=== PATIENT | male | born 1930 ===

== ENCOUNTER → 2018-10-01 | Outpatient (CLI) | payer MEDICARE ==
[2018-10-01 08:49] LABS: Urine WBC None Seen /hpf (0 - 3)
[2018-10-01 08:57] LABS: Basophils # (auto) 0.1 uL; Basophils % (auto) 1.8 % (0.0-2.0); Eosinophils # (auto) 0.2 uL; Eosinophils % (auto) 4.8 % (0.0-7.0); Hematocrit 48.3 % (41.0-53.0); Hemoglobin 16.3 g/dL (13.5-17.5); Lymphocytes # (auto) 1.4 uL; Mean Corpuscular Hgb Conc. 33.7 g/dL (32.0-36.0); Mean Corpuscular Volume 100.8 fL (80.0-100.0); Monocytes # (auto) 0.4 uL; Monocytes % (auto) 8.3 % (0.0-12.0); Neutrophils % (auto) 57.1 % (37.0-80.0); Nucleated Red Blood Cells % 0.1 %; Platelet Count (auto) 220 10^3/uL (140-450); Red Blood Cells 4.79 10^6/uL (4.5-5.90); Red Cell Distribution Width 13.5 % (11.8-14.3); White Blood Cell 5.2 10^3/uL (4.4-10.8)
[2018-10-01 09:10] LABS: Urine Bacteria NONE SEEN /hpf (None Seen); Urine Blood Negative /uL (Negative); Urine Specific Gravity 1.015 (1.001-1.035)
[2018-10-01 09:16] LABS: Potassium 4.2 mmol/L (3.5-5.1)
[2018-10-01 09:23] LABS: INR 1.06 (0.9-1.15); Partial Thromboplastin Time 29.7 sec (23.78-33.04); Prothrombin Time 11.3 sec (9.27-12.13)
[2018-10-01 09:26] LABS: Albumin 3.7 g/dL (3.4-5.0); BUN/Creatinine Ratio 17.6; Bilirubin, Total 0.8 mg/dL (0.2-1.0); Calcium 8.5 mg/dL (8.5-10.1); Total Protein 8.3 g/dL (6.4-8.2)
[2018-10-01 20:05] LABS: Free T4 (Free Thyroxine) 1.25 ng/dL (0.89-1.76); Prostate Specific Antigen 0.91 ng/mL (0.0-4.0)
[2018-10-01 20:06] LABS: Folate (Folic Acid) 11.34 ng/mL (5.38-24)
== END | disposition home or self-care (01) ==
LOC: LAB 08:14
PROVIDERS: ATTEND Internal Medicine
DX: Z01.818 Encounter for other preprocedural examination (principal); H25.9 Unspecified age-related cataract; R79.89 Other specified abnormal findings of blood chemistry
CPT/HCPCS: 36415; 80053; 80061; 81001; 82607; 82746; 83036; 84153; 84439; 84443; 85025; 85610; 85730